=== PATIENT | female | born 1965 | race Caucasian/White ===

== ENCOUNTER 2017-11-15 14:44 | Emergency (ER) | payer MEDICARE, MEDICAID ==
[2017-11-15 14:44] VITALS: BMI 25.4
[2017-11-15 14:51] VITALS: BP 130/71; PULSE 77; RESP 16; TEMP 98.7; O2SAT 99
[2017-11-15] MEDS ORDERED: Oxycodone/Acetaminophen 5/325 mg Tab PO STA (15:04)
[2017-11-15] MEDS ORDERED: Oxycodone/Acetaminophen 5/325 mg Tab ONE (15:11)
--- NOTE | 2017-11-15 16:01 | ED PDOC ---
HPI: General Adult Time Seen by Provider: 11/15/17 14:53 Chief Complaint (Nursing): Back Pain Chief Complaint (Provider): Trauma History Per: Patient History/Exam Limitations: no limitations Onset/Duration Of Symptoms: Days (x2) Current Symptoms Are (Timing): Still Present Additional Complaint(s): Lynne Balbuena is a 52 year old female who presents to the emergency department for evaluation after sustaining a fall yesterday. Patient states she fell backwards out of her truck, hitting her back on a metal bar. Now complaining of pain to the mid to lower back, right arm and wrist, left hand, and right knee. Denies any associated head injury, loss of consciousness, chest pain, abdominal pain, numbness, or tingling. PMD: Dr. 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 - Surgical History Other surgeries: Breast biopsy - Family History Family History: States: Unknown Family Hx - Social History Current smoker - smoking cessation education provided: Yes Alcohol: None Drugs: Denies - Immunization History Hx Tetanus Toxoid Vaccination: No Hx Influenza Vaccination: No Hx Pneumococcal Vaccination: No - Home Medications Home Medications: Ambulatory Orders Medication Instructions Recorded Bethanechol Chloride [Urecholine] 25 mg PO BID 03/02/17 Esomeprazole Magnesium [Nexium 40 mg PO DAILY PRN 03/02/17 24Hr] Levothyroxine [Synthroid] 125 mcg PO DAILY 03/02/17 Lubiprostone [Amitiza] 24 mcg PO BID 03/02/17 Montelukast Sodium [Singulair] 10 mg PO DAILY 03/02/17 Simvastatin 20 mg PO DAILY 03/02/17 Tamoxifen Citrate 20 mg PO DAILY 03/02/17 Metaxalone [Skelaxin] 800 mg PO TID PRN #10 tablet 11/15/17 - Allergies Allergies/Adverse Reactions: Allergies Allergy/AdvReac Type Severity Reaction Status Date / Time black pepper Allergy PAIN Verified 06/12/17 12:50 Review of Systems ROS Statement: Except As Marked, All Systems Reviewed And Found Negative Cardiovascular: Negative for: Chest Pain Gastrointestinal: Negative for: Abdominal Pain Musculoskeletal: Positive for: Arm Pain (right arm and wrist), Back Pain (mid to low), Hand Pain (left), Leg Pain (right knee pain) Neurological: Negative for: Numbness (and tingling), Other (Head injury, LOC) Physical Exam - Reviewed Nursing Documentation Reviewed: Yes Vital Signs Reviewed: Yes - Physical Exam Appears: Positive for: Non-toxic, No Acute Distress Head Exam: Positive for: ATRAUMATIC, NORMAL INSPECTION, NORMOCEPHALIC Skin: Positive for: Normal Color, Warm, Dry Eye Exam: Positive for: EOMI, Normal appearance, PERRL Neck: Positive for: Normal, Painless ROM Cardiovascular/Chest: Positive for: Regular Rate, Rhythm. Negative for: Murmur Respiratory: Positive for: Normal Breath Sounds. Negative for: Accessory Muscle Use, Respiratory Distress Back: Positive for: Other (bilateral parathoracic and paralumbar tenderness). Negative for: Vertebral Tenderness Extremity: Positive for: Normal ROM. Negative for: Tenderness, Deformity, Swelling Neurologic/Psych: Positive for: Alert, Oriented (x3), Gait (steady) - ECG O2 Sat by Pulse Oximetry: 99 (RA) Pulse Ox Interpretation: Normal Medical Decision Making Medical Decision Making: Time: 15:04 Initial Plan: --Percocet 1 tab PO --X-Ray Thoracic Spine --X-Ray LS Spine --X-Ray Right Knee --X-Ray Right Wrist --X-Ray Right Humerus --X-Ray Left Hand --Reevaluation Time: 15:44 X-Ray Right Knee FINDINGS: BONES: Normal. No fracture. JOINTS: Normal. No osteoarthritis. JOINT EFFUSION: None. OTHER FINDINGS: None. IMPRESSION: Normal radiographs of the right knee. Time: 15:44 X-Ray Right Wrist: FINDINGS: BONES: No acute fracture. . JOINTS: Unremarkable. SOFT TISSUES: Normal. OTHER FINDINGS: None. IMPRESSION: No demonstrated fracture or dislocation. Time: 15:44 X-Ray Right Humerus FINDINGS: BONES: Normal. No fracture or focal lesion. SOFT TISSUES: Normal. OTHER FINDINGS: Calcific tendinitis of the supraspinatus tendon. IMPRESSION: No demonstrated fracture or dislocation. Calcific tendinitis of the supraspinatus tendon. Time: 16:47 X-Ray Lumbar Spine: FINDINGS: BONES: Normal alignment. No listhesis. No fracture. DISC SPACES: Unremarkable. OTHER FINDINGS: None. IMPRESSION: Unremarkable radiographs of the lumbar spine. Time: 16:47 X-Ray Thoracic Spine: FINDINGS: BONES: Alignment maintained. No fracture. DISC SPACES: Normal. SOFT TISSUES: Normal. OTHER FINDINGS: Partially imaged anterior cervical fixation plate. IMPRESSION: Normal radiographs of the thoracic spine. Time: 16:59 X-Ray Left Hand: FINDINGS: BONES: Normal. No fracture. JOINTS: Normal. No osteoarthritic changes. SOFT TISSUES: Normal. OTHER FINDINGS: None. IMPRESSION: Normal left hand radiographs. Patient is medically stable for discharge home. Provided with rx for Metaxalone. Counseling was provided and all questions were answered regarding diagnosis and need for follow up with PMD. There is agreement to discharge plan. Return if symptoms persist or worsen. Scribe Attestation: Documented by Jessica Schultz, acting as a scribe for Yash Bello PA-C Provider Scribe Attestation: All medical record entries made by the Scribe were at my direction and personally dictated by me. I have reviewed the chart and agree that the record accurately reflects my personal performance of the history, physical exam, medical decision making, and the department course for this patient. I have also personally directed, reviewed, and agree with the discharge instructions and disposition. Disposition - Clinical Impression Clinical Impression: Fall, Arm contusion, Wrist sprain, Back contusion, Knee injury - Patient ED Disposition Is Patient to be Admitted: No Counseled Patient/Family Regarding: Studies Performed, Diagnosis, Need For Followup, Rx Given - Disposition Disposition: Routine/Home Disposition Time: 15:35 Condition: STABLE Prescriptions: Metaxalone [Skelaxin] 800 mg PO TID PRN #10 tablet PRN Reason: muscle spasm Instructions: Sprain (ED), Contusion in Adults (ED), Back Pain (ED) Forms: [employer] (Panamanian) Print Language: SAMOAN
--- NOTE | 2017-11-15 16:49 | RAD ---
PROCEDURE: Radiographs of the Lumbar Spine. HISTORY: trauma COMPARISON: No prior. FINDINGS: BONES: Normal alignment. No listhesis. No fracture. DISC SPACES: Unremarkable. OTHER FINDINGS: None. IMPRESSION: Unremarkable radiographs of the lumbar spine.
--- NOTE | 2017-11-15 16:49 | RAD ---
HISTORY: trauma COMPARISON: No prior. FINDINGS: BONES: Alignment maintained. No fracture. DISC SPACES: Normal. SOFT TISSUES: Normal. OTHER FINDINGS: Partially imaged anterior cervical fixation plate. IMPRESSION: Normal radiographs of the thoracic spine.
--- NOTE | 2017-11-15 16:49 | RAD ---
PROCEDURE: Right Knee Radiographs. HISTORY: trauma COMPARISON: None. FINDINGS: BONES: Normal. No fracture. JOINTS: Normal. No osteoarthritis. JOINT EFFUSION: None. OTHER FINDINGS: None. IMPRESSION: Normal radiographs of the right knee.
--- NOTE | 2017-11-15 16:50 | RAD ---
PROCEDURE: Radiographs of the right humerus. HISTORY: trauma COMPARISON: None. FINDINGS: BONES: Normal. No fracture or focal lesion. SOFT TISSUES: Normal. OTHER FINDINGS: Calcific tendinitis of the supraspinatus tendon. IMPRESSION: No demonstrated fracture or dislocation. Calcific tendinitis of the supraspinatus tendon.
--- NOTE | 2017-11-15 16:50 | RAD ---
PROCEDURE: Right Wrist Radiographs. HISTORY: trauma COMPARISON: None. FINDINGS: BONES: No acute fracture. . JOINTS: Unremarkable. SOFT TISSUES: Normal. OTHER FINDINGS: None. IMPRESSION: No demonstrated fracture or dislocation.
--- NOTE | 2017-11-15 17:00 | RAD ---
PROCEDURE: Left Hand Radiographs. HISTORY: trauma COMPARISON: None. FINDINGS: BONES: Normal. No fracture. JOINTS: Normal. No osteoarthritic changes. SOFT TISSUES: Normal. OTHER FINDINGS: None. IMPRESSION: Normal left hand radiographs.
== END 2017-11-15 16:50 | disposition home or self-care (01) ==
LOC: H.ER 14:44
DX: S50.11XA Contusion of right forearm, initial encounter (principal); S63.509A Unspecified sprain of unspecified wrist, initial encounter; S30.0XXA Contusion of lower back and pelvis, initial encounter; S89.91XA Unspecified injury of right lower leg, initial encounter; Y93.9 Activity, unspecified; F17.200 Nicotine dependence, unspecified, uncomplicated; Z86.59 Personal history of other mental and behavioral disorders; W19.XXXA Unspecified fall, initial encounter

== ENCOUNTER 2019-01-24 08:50 | Day surgery (SDC) | payer MEDICARE, MEDICAID ==
[2019-01-24 09:21] VITALS: BMI 30.6
[2019-01-24] MEDS ORDERED: Lactated Ringer's 500 ML IV ONE (09:29)
[2019-01-24] MEDS ORDERED: Midazolam 2 MG/2 ML VIAL ONE (10:01)
[2019-01-24] MEDS ORDERED: Propofol 10 mg/ml Inj (20 ML) ONE (10:01)
[2019-01-24] MEDS ORDERED: ePHEDrine 50 mg/ml Inj ONE (10:11)
[2019-01-24 10:28] VITALS: PULSE 100
[2019-01-24 11:19] VITALS: BP 93/54; RESP 19; TEMP 97.8; O2SAT 99
== END 2019-01-24 12:01 | disposition home or self-care (01) ==
LOC: H.ENDO 08:50
PROVIDERS: ATTEND Internal Medicine Gastroenterology
DX: K92.1 Melena (principal); D64.9 Anemia, unspecified; J45.909 Unspecified asthma, uncomplicated; E03.9 Hypothyroidism, unspecified; K64.8 Other hemorrhoids
CPT/HCPCS: 45378; J2001; J2250; J2704; J7120